=== PATIENT | male | born 1980 | race Two or more races ===

== ENCOUNTER 2019-01-10 12:37 | Day surgery (SDC) | payer OTHER | END 2019-01-10 16:30 | disposition home or self-care (01) | LOC: AMB-ENDOS 12:37 | DX: K29.30 Chronic superficial gastritis without bleeding (principal) ==

== ENCOUNTER 2022-08-11 09:07 | Outpatient (CLI) | payer OTHER | END 2022-08-11 09:09 | disposition home or self-care (01) | LOC: SONOGRAMA 09:07 | PROVIDERS: ATTEND Pathology Anatomic Pathology & Clinical Pathology | DX: D44.0 Neoplasm of uncertain behavior of thyroid gland (principal); D34 Benign neoplasm of thyroid gland; E04.9 Nontoxic goiter, unspecified; E07.9 Disorder of thyroid, unspecified ==